=== PATIENT | male | born 2000 | race Caucasian/White ===

== ENCOUNTER 2025-01-23 18:17 | Emergency (ER) | payer SELFPAY ==
[~2025-01-23] VITALS: Ht 172.7 cm; Wt 60.0 kg
[2025-01-23 18:27] VITALS: BP 121/77; TEMP 37.1; O2SAT 100
[2025-01-23 18:38] VITALS: PULSE 120; RESP 18; O2SAT 100
== END 2025-01-23 21:26 | disposition left against medical advice (07) ==
LOC: ER 18:17
DX: F10.239 Alcohol dependence with withdrawal, unspecified (principal); R00.0 Tachycardia, unspecified; F41.9 Anxiety disorder, unspecified; Y90.9 Presence of alcohol in blood, level not specified
CPT/HCPCS: 99282